=== PATIENT | male | born 2000 | race Caucasian/White ===

== ENCOUNTER 2021-08-08 07:37 | Inpatient (IN) | payer OTHER ==
[2021-08-08] MEDS ORDERED: Fentanyl 100 MCG/2 ML VIAL ONE (07:41)
[2021-08-08] MEDS ORDERED: Boostrix 0.5 ML (Tdap) VIAL ONE (07:41)
[2021-08-08] MEDS ORDERED: CEFAZOLIN 1 GM VIAL ONE (07:41)
[2021-08-08] MEDS ORDERED: Succinylcholine 200 MG/10 ml SYRINGE FS ONE (07:43)
[2021-08-08 08:05] LABS: Hemoglobin 16.7 g/dL (14.0-18.0); Mean Corpuscular HGB CONC 34.2 g/dL (32.0-36.0); Mean Corpuscular Hemoglobin 30.1 pg (27.0-31.0); Mean Corpuscular Volume 88.1 fL (78.0-98.0); Mean Platelet Volume 8.6 fL (7.4-10.4); Platelet Count 255 thou/uL (130-400); RBC Distribution Width 11.9 % (11.5-14.5); Red Blood Cell (RBC) Count 5.55 mill/uL (4.70-6.10); White Blood Cell (WBC) Count 21.7 thou/uL (4.8-10.8)
[2021-08-08 08:20] LABS: INR-International Normal Ratio 1.3; Prothrombin Time 16.7 sec (12.0-14.7)
[2021-08-08] MEDS ORDERED: Ondansetron ODT 4 MG TAB PO PRN (08:20)
[2021-08-08] MEDS ORDERED: Ondansetron PF 4 MG/2 ML Vial IVP PRN (08:20)
[2021-08-08] MEDS ORDERED: Dextrose 50% Abboject 50 ML SYRINGE SLOW IVP PRN (08:20)
[2021-08-08] MEDS ORDERED: Dextrose 5% in Water 1,000 ML IV PRN (08:20)
[2021-08-08 08:21] LABS: PTT 28.8 sec (22.9-36.1)
[2021-08-08 08:28] LABS: ALT (SGPT) 37 U/L (8-55); AST (SGOT) 52 U/L (5-34); Albumin 4.1 g/dL (3.5-5.0); Alcohol 196 mg/dL (Less than 10); Alkaline Phosphatase 89 U/L (40-110); Anion Gap 20 mmol/L (10-20); BUN (Urea Nitrogen) 8 mg/dL (8.9-20.6); Bilirubin, Total 0.4 mg/dL (0.2-1.2); Calc. Creatinine Clearance 0 mL/min (70-130); Calcium 7.9 mg/dL (7.8-10.44); Carbon Dioxide 19 mmol/L (22-29); Chloride 112 mmol/L (98-107); Globulin 2.6 g/dL (2.4-3.5); Glucose 157 mg/dL (70-105); Potassium 3.8 mmol/L (3.5-5.1); Protein, Total 6.7 g/dL (6.0-8.3); Sodium 147 mmol/L (136-145)
[2021-08-08 08:30] LABS: Band 10 % (5-11); Eosinophils 1 % (0-10); Lymphocytes 17 % (21-51); MDiff Complete? YES; Monocytes 4 % (0-10); Neutrophil 63 % (42-75); RBC Morphology Normal; Reactive Lymphocytes 5 % (0-10)
[2021-08-08 09:51] LABS: Magnesium 1.9 mg/dL (1.6-2.6)
[2021-08-08 10:11] LABS: Bilirubin Negative (Negative); Blood, Urine Large (Negative); Glucose, Urine (Dipstick) Negative (Negative); Ketone, Urine Negative (Negative); Leukocyte Negative (Negative); Nitrite Negative (Negative); Protein, Urine (Dipstick) Negative (Neg-Trace); Urobilinogen 0.2 mg/dL (Less than 2)
[2021-08-08 10:15] LABS: Clarity Clear (Clear); Specific Gravity, Urine 1.047 (1.002-1.036)
[2021-08-08 10:21] LABS: Amphetamine Not Detected (NotDetected); Barbiturates Screen Not Detected (NotDetected); Benzodiazepine Screen Not Detected (NotDetected); Cocaine Metabolite Screen Not Detected (NotDetected); Methadone Not Detected (NotDetected); Methamphetamine Not Detected (NotDetected); Opiate Screen Not Detected (NotDetected); Oxycodone Screen Not Detected (NotDetected); Phencyclidine (PCP) Not Detected (NotDetected); THC/Cannabinoid Screen Not Detected (NotDetected); Tricyclic Screen Not Detected (NotDetected)
[2021-08-08 10:22] LABS: Bacteria/HPF Rare-Few HPF (None Seen); WBC/HPF 0-3 HPF (0-3)
[2021-08-08] MEDS ORDERED: Iopamidol-370 76% 500 ML 1 ML ONE (10:28)
[2021-08-08] MEDS ORDERED: Calcium Chloride 13.6 MEQ in Sodium Chloride 0.9% 100 ML IVPB SCH (11:00)
[2021-08-08] MEDS ORDERED: HYDROmorphone 0.5 MG/0.5 ML SYRINGE SLOW IVP PRN (11:13)
[2021-08-08] MEDS ORDERED: HYDROmorphone 0.5 MG/0.5 ML SYRINGE SLOW IVP SCH (11:15)
[2021-08-08] MEDS ORDERED: HYDROmorphone 0.5 MG/0.5 ML SYRINGE ONE (11:20)
[2021-08-08 12:21] LABS: Anion Gap 15 mmol/L (10-20); BUN (Urea Nitrogen) 9 mg/dL (8.9-20.6); Calc. Creatinine Clearance 0 mL/min (70-130); Calcium 8.2 mg/dL (7.8-10.44); Carbon Dioxide 17 mmol/L (22-29); Chloride 116 mmol/L (98-107); Glucose 101 mg/dL (70-105); Potassium 4.3 mmol/L (3.5-5.1); Sodium 144 mmol/L (136-145)
[2021-08-08 12:22] LABS: Lactic Acid 2.6 mmol/L (0.5-2.2); Magnesium 1.8 mg/dL (1.6-2.6); Phosphorus 2.6 mg/dL (2.3-4.7)
[2021-08-08] MEDS ORDERED: Famotidine/PF 20 mg/2ml Vial ONE (12:47)
[2021-08-08 13:17] LABS: SARS-CoV-2 NAA Rapid Test Not Detected (NotDetected)
[2021-08-08] MEDS: Lactated Ringer's 1,000 ML IV SCH ×2 (15:08→18:40)
[2021-08-08] MEDS: Famotidine 20 MG TAB PO SCH ×2 (15:08→20:25)
[2021-08-08] MEDS: Acetaminophen 325 MG TAB PO SCH ×3 (15:32→23:24)
[2021-08-08] MEDS: traMADol HCl 50 MG TAB PO SCH ×3 (15:33→23:23)
[2021-08-08] MEDS: Ibuprofen 200 MG TAB PO SCH ×2 (15:40→20:25)
[2021-08-08] MEDS: Ascorbic Acid 500 mg Chewable Tablet PO SCH (20:25)
[2021-08-08 20:58] LABS: Hemoglobin 14.9 g/dL (14.0-18.0)
[2021-08-09 04:47] LABS: Anion Gap 10 mmol/L (10-20); BUN (Urea Nitrogen) 15 mg/dL (8.9-20.6); Calc. Creatinine Clearance 0 mL/min (70-130); Calcium 8.3 mg/dL (7.8-10.44); Carbon Dioxide 23 mmol/L (22-29); Chloride 108 mmol/L (98-107); Glucose 106 mg/dL (70-105); Phosphorus 2.8 mg/dL (2.3-4.7); Potassium 4.3 mmol/L (3.5-5.1); Sodium 137 mmol/L (136-145)
[2021-08-09 04:57] LABS: Hemoglobin 13.7 g/dL (14.0-18.0); Mean Corpuscular Hemoglobin 30.2 pg (27.0-31.0); Mean Corpuscular Volume 88.8 fL (78.0-98.0); Mean Platelet Volume 8.2 fL (7.4-10.4); Platelet Count 111 thou/uL (130-400); RBC Distribution Width 12.2 % (11.5-14.5); Red Blood Cell (RBC) Count 4.52 mill/uL (4.70-6.10); White Blood Cell (WBC) Count 5.7 thou/uL (4.8-10.8)
[2021-08-09 04:58] LABS: Band 1 % (5-11); Hypochromia SLIGHT = 6-15 cells (100X) (0-5/hpf); Lymphocytes 19 % (21-51); MDiff Complete? YES; Monocytes 9 % (0-10); Neutrophil 68 % (42-75); Platelet Morphology Comment Appears Adequate; Reactive Lymphocytes 3 % (0-10)
[2021-08-09] MEDS: Acetaminophen 325 MG TAB PO SCH ×3 (05:03→17:44)
[2021-08-09] MEDS: Ibuprofen 200 MG TAB PO SCH ×3 (05:04→21:21)
[2021-08-09] MEDS: traMADol HCl 50 MG TAB PO SCH ×3 (05:06→17:45)
[2021-08-09] MEDS: Lactated Ringer's 1,000 ML IV SCH (05:07)
[2021-08-09] MEDS ORDERED: HYDROmorphone 0.5 MG/0.5 ML SYRINGE SLOW IVP PRN (08:57)
[2021-08-09] MEDS: Famotidine 20 MG TAB PO SCH ×2 (09:25→21:20)
[2021-08-09] MEDS: Ascorbic Acid 500 mg Chewable Tablet PO SCH ×2 (09:25→21:19)
[2021-08-09 11:29] LABS: Magnesium 2.1 mg/dL (1.6-2.6)
[2021-08-09] MEDS: Silver Sulfadiazine 50 GM TUBE TOP SCH (21:21)
[2021-08-09] MEDS: Senokot S 8.6-50 MG TAB PO SCH (21:21)
[2021-08-10] MEDS: Acetaminophen 325 MG TAB PO SCH ×5 (00:09→18:53)
[2021-08-10] MEDS: traMADol HCl 50 MG TAB PO SCH ×4 (00:10→18:52)
[2021-08-10 02:53] LABS: #Eosinphils 0.4 thou/uL (0.0-0.7); #Lymphocytes 1.1 thou/uL (1.20-3.40); #Monocytes 0.8 thou/uL (0.11-0.59); #Neutrophils 3.4 thou/uL (1.40-6.50); %Basophils 0.3 % (0.0-1.0); %Eosinophils 7.3 % (0.0-10.0); %Lymphocytes 18.7 % (21.0-51.0); %Monocytes 13.4 % (0.0-10.0); %Neutrophils 60.3 % (42.0-75.0); Hemoglobin 10.5 g/dL (14.0-18.0); Mean Corpuscular HGB CONC 33.9 g/dL (32.0-36.0); Mean Corpuscular Hemoglobin 30.2 pg (27.0-31.0); Mean Platelet Volume 8.5 fL (7.4-10.4); Platelet Count 114 thou/uL (130-400); RBC Distribution Width 12.1 % (11.5-14.5); Red Blood Cell (RBC) Count 3.49 mill/uL (4.70-6.10); White Blood Cell (WBC) Count 5.7 thou/uL (4.8-10.8)
[2021-08-10 03:13] LABS: Anion Gap 10 mmol/L (10-20); BUN (Urea Nitrogen) 14 mg/dL (8.9-20.6); Calc. Creatinine Clearance 153 mL/min (70-130); Calcium 8.4 mg/dL (7.8-10.44); Carbon Dioxide 26 mmol/L (22-29); Chloride 102 mmol/L (98-107); Glucose 108 mg/dL (70-105); Phosphorus 2.7 mg/dL (2.3-4.7); Sodium 134 mmol/L (136-145)
[2021-08-10] MEDS: Ibuprofen 200 MG TAB PO SCH ×3 (05:27→21:26)
[2021-08-10] MEDS: Senokot S 8.6-50 MG TAB PO SCH ×2 (09:25→21:27)
[2021-08-10] MEDS: Ascorbic Acid 500 mg Chewable Tablet PO SCH ×2 (09:25→19:48)
[2021-08-10] MEDS: Famotidine 20 MG TAB PO SCH ×2 (09:25→19:48)
[2021-08-10] MEDS: Silver Sulfadiazine 50 GM TUBE TOP SCH ×2 (10:40→21:33)
[2021-08-10] MEDS ORDERED: Sodium Chloride 0.9% 500 ML IV SCH (10:45)
[2021-08-10] MEDS ORDERED: Famotidine/PF 20 mg/2ml Vial ONE (14:13)
[2021-08-10] MEDS ORDERED: ceFAZolin 2 GM/Dextrose 50 ML IVPB ONE (14:24)
[2021-08-10] MEDS ORDERED: Midazolam HCl 2 mg/2 ml Vial ONE (14:31)
[2021-08-10] MEDS ORDERED: Fentanyl 100 MCG/2 ML VIAL ONE ×5 (14:35→17:57)
[2021-08-10] MEDS ORDERED: SUGAMMADEX SODIUM 200 MG/2 ML VIAL ONE (14:35)
[2021-08-10] MEDS ORDERED: Metoclopramide HCl 10 MG/2 ML VIAL ONE (14:40)
[2021-08-10] MEDS ORDERED: Rocuronium Bromide 10 MG/ML (10ML VIAL) ONE (14:40)
[2021-08-10] MEDS ORDERED: Dexamethasone 20 MG/5 ML VIAL ONE (14:40)
[2021-08-10] MEDS ORDERED: PROPOFOL 200 MG/20 ML VIAL ONE (14:40)
[2021-08-10] MEDS ORDERED: Lidocaine 1% PF 5 ML VIAL ONE (14:40)
[2021-08-10] MEDS ORDERED: Ondansetron PF 4 MG/2 ML Vial ONE (14:40)
[2021-08-10] MEDS ORDERED: PHENYLEPHRINE-NS 100 MCG/ML 10 ML SYRINGE ONE (14:40)
[2021-08-10] MEDS ORDERED: Promethazine HCl 25 MG/ML VIAL IVPB PRN (16:23)
[2021-08-10] MEDS ORDERED: Promethazine HCl 25 MG/ML VIAL IM PRN (16:23)
[2021-08-10] MEDS ORDERED: Ondansetron HCl/PF 4 MG/2 ML Vial IVP PRN (16:23)
[2021-08-10] MEDS ORDERED: HYDROmorphone 2 MG/ML VIAL SLOW IVP PRN (16:23)
[2021-08-10] MEDS ORDERED: Meperidine HCl/PF 25 MG/ML VIAL SLOW IVP PRN (16:23)
[2021-08-10] MEDS ORDERED: HYDROmorphone 0.5 MG/0.5 ML SYRINGE ONE ×2 (16:57→17:10)
[2021-08-10 17:49] LABS: Hemoglobin 9.2 g/dL (14.0-18.0)
[2021-08-10] MEDS: Sodium Chloride 0.9% 1,000 ML IV SCH ×3 (18:05→21:46)
[2021-08-10] MEDS: traMADol HCl 50 MG TAB PO PRN (19:48)
[2021-08-10] MEDS ORDERED: ceFAZolin Sodium/D5W 2 GM in Premix Bag 1 BAG IVPB SCH (22:00)
[2021-08-10] MEDS: ceFAZolin 2 GM/Dextrose 50 ML 2 GM in Premix Bag 1 BAG IVPB SCH (22:28)
[2021-08-11] MEDS: traMADol HCl 50 MG TAB PO SCH ×5 (01:02→23:47)
[2021-08-11] MEDS: Acetaminophen 325 MG TAB PO SCH ×2 (01:08→04:56)
[2021-08-11] MEDS: Ibuprofen 200 MG TAB PO SCH (04:57)
[2021-08-11] MEDS: ceFAZolin 2 GM/Dextrose 50 ML 2 GM in Premix Bag 1 BAG IVPB SCH ×2 (05:19→14:30)
[2021-08-11 06:33] LABS: #Lymphocytes 0.4 thou/uL (1.20-3.40); #Monocytes 0.4 thou/uL (0.11-0.59); #Neutrophils 4.5 thou/uL (1.40-6.50); %Eosinophils 0.2 % (0.0-10.0); %Lymphocytes 7.5 % (21.0-51.0); %Monocytes 8.1 % (0.0-10.0); %Neutrophils 84.2 % (42.0-75.0); Hemoglobin 7.9 g/dL (14.0-18.0); Mean Corpuscular HGB CONC 35.6 g/dL (32.0-36.0); Mean Corpuscular Hemoglobin 31.5 pg (27.0-31.0); Mean Corpuscular Volume 88.6 fL (78.0-98.0); Mean Platelet Volume 8.4 fL (7.4-10.4); Platelet Count 106 thou/uL (130-400); RBC Distribution Width 11.7 % (11.5-14.5); Red Blood Cell (RBC) Count 2.51 mill/uL (4.70-6.10); White Blood Cell (WBC) Count 5.3 thou/uL (4.8-10.8)
[2021-08-11] MEDS: Famotidine 20 MG TAB PO SCH ×2 (08:55→20:31)
[2021-08-11] MEDS: Ascorbic Acid 500 mg Chewable Tablet PO SCH ×2 (08:55→20:31)
[2021-08-11] MEDS: Senokot S 8.6-50 MG TAB PO SCH ×2 (08:55→20:31)
[2021-08-11] MEDS: traMADol HCl 50 MG TAB PO PRN (09:02)
[2021-08-11] MEDS: Sodium Chloride 0.9% 1,000 ML IV SCH (09:03)
[2021-08-11] MEDS: Silver Sulfadiazine 50 GM TUBE TOP SCH ×3 (09:03→20:33)
[2021-08-11] MEDS: Acetaminophen 500 MG TAB PO SCH ×3 (11:43→23:46)
[2021-08-11 12:05] LABS: #Lymphocytes 0.5 thou/uL (1.20-3.40); #Monocytes 0.6 thou/uL (0.11-0.59); #Neutrophils 5.5 thou/uL (1.40-6.50); %Eosinophils 0.2 % (0.0-10.0); %Lymphocytes 7.8 % (21.0-51.0); %Monocytes 8.4 % (0.0-10.0); %Neutrophils 83.6 % (42.0-75.0); Hemoglobin 7.8 g/dL (14.0-18.0); Mean Corpuscular HGB CONC 35.2 g/dL (32.0-36.0); Mean Platelet Volume 8.1 fL (7.4-10.4); Platelet Count 124 thou/uL (130-400); RBC Distribution Width 11.8 % (11.5-14.5); White Blood Cell (WBC) Count 6.6 thou/uL (4.8-10.8)
[2021-08-11] MEDS: Gabapentin 300 MG CAP PO SCH ×2 (14:12→20:31)
[2021-08-11] MEDS: Ibuprofen 200 MG TAB PO PRN (20:32)
[2021-08-12] MEDS: Acetaminophen 500 MG TAB PO SCH (05:41)
[2021-08-12] MEDS: traMADol HCl 50 MG TAB PO SCH ×4 (05:42→23:26)
[2021-08-12 06:13] LABS: #Basophils 0.1 thou/uL (0.0-0.2); #Eosinphils 0.1 thou/uL (0.0-0.7); #Monocytes 0.5 thou/uL (0.11-0.59); #Neutrophils 2.5 thou/uL (1.40-6.50); %Basophils 1.6 % (0.0-1.0); %Eosinophils 1.3 % (0.0-10.0); %Lymphocytes 24.9 % (21.0-51.0); %Monocytes 11.5 % (0.0-10.0); %Neutrophils 60.7 % (42.0-75.0); Hemoglobin 7.4 g/dL (14.0-18.0); Mean Corpuscular HGB CONC 34.2 g/dL (32.0-36.0); Mean Corpuscular Hemoglobin 30.7 pg (27.0-31.0); Mean Corpuscular Volume 89.6 fL (78.0-98.0); Mean Platelet Volume 7.6 fL (7.4-10.4); Platelet Count 123 thou/uL (130-400); RBC Distribution Width 12.1 % (11.5-14.5); Red Blood Cell (RBC) Count 2.42 mill/uL (4.70-6.10); White Blood Cell (WBC) Count 4.2 thou/uL (4.8-10.8)
[2021-08-12 06:26] LABS: Anion Gap 11 mmol/L (10-20); BUN (Urea Nitrogen) 10 mg/dL (8.9-20.6); Calc. Creatinine Clearance 175 mL/min (70-130); Calcium 8.1 mg/dL (7.8-10.44); Carbon Dioxide 26 mmol/L (22-29); Chloride 106 mmol/L (98-107); Glucose 93 mg/dL (70-105); Phosphorus 2.1 mg/dL (2.3-4.7); Potassium 3.6 mmol/L (3.5-5.1); Sodium 139 mmol/L (136-145)
[2021-08-12] MEDS ORDERED: Acetaminophen/Codeine 30-300mg Tablet PO PRN ×3 (08:22→08:38)
[2021-08-12] MEDS ORDERED: Potassium Phosphate 30 MMOL in Sodium Chloride 0.9% 250 ML 250 ML IVPB SCH (08:45)
[2021-08-12] MEDS ORDERED: Pregabalin 75 MG CAP PO SCH (10:15)
[2021-08-12] MEDS: Ascorbic Acid 500 mg Chewable Tablet PO SCH ×2 (10:39→20:42)
[2021-08-12] MEDS: Polyethylene Glycol 3350 17 GM Packet PO SCH (10:39)
[2021-08-12] MEDS: Famotidine 20 MG TAB PO SCH ×2 (10:39→20:39)
[2021-08-12] MEDS: Acetaminophen/Codeine 30-300mg Tablet PO PRN ×3 (10:40→20:40)
[2021-08-12] MEDS: Senokot S 8.6-50 MG TAB PO SCH ×2 (10:40→20:39)
[2021-08-12] MEDS: Ibuprofen 200 MG TAB PO PRN ×2 (10:41→20:39)
[2021-08-12] MEDS: Acetaminophen 325 MG TAB PO SCH ×3 (10:42→23:25)
[2021-08-12] MEDS: Silver Sulfadiazine 50 GM TUBE TOP SCH ×2 (11:12→20:43)
[2021-08-12] MEDS: Gabapentin 300 MG CAP PO SCH (11:19)
[2021-08-12] MEDS ORDERED: Acetaminophen 325 MG TAB PO SCH (12:00)
[2021-08-12] MEDS: Pregabalin 75 MG CAP PO SCH (20:39)
[2021-08-13] MEDS: Acetaminophen 325 MG TAB PO SCH (05:36)
[2021-08-13] MEDS: traMADol HCl 50 MG TAB PO SCH ×4 (05:36→23:34)
[2021-08-13 06:46] LABS: #Eosinphils 0.3 thou/uL (0.0-0.7); #Lymphocytes 0.9 thou/uL (1.20-3.40); #Monocytes 0.7 thou/uL (0.11-0.59); #Neutrophils 4.8 thou/uL (1.40-6.50); %Eosinophils 3.9 % (0.0-10.0); %Lymphocytes 13.8 % (21.0-51.0); %Monocytes 10.2 % (0.0-10.0); %Neutrophils 72.2 % (42.0-75.0); Hemoglobin 9.8 g/dL (14.0-18.0); Mean Corpuscular HGB CONC 35.7 g/dL (32.0-36.0); Mean Corpuscular Hemoglobin 31.6 pg (27.0-31.0); Mean Corpuscular Volume 88.4 fL (78.0-98.0); Mean Platelet Volume 7.5 fL (7.4-10.4); Platelet Count 134 thou/uL (130-400); RBC Distribution Width 12.9 % (11.5-14.5); Red Blood Cell (RBC) Count 3.11 mill/uL (4.70-6.10); White Blood Cell (WBC) Count 6.7 thou/uL (4.8-10.8)
[2021-08-13] MEDS: Ibuprofen 200 MG TAB PO PRN ×2 (06:49→18:40)
[2021-08-13] MEDS: Acetaminophen/Codeine 30-300mg Tablet PO PRN (06:49)
[2021-08-13 07:37] LABS: Anion Gap 11 mmol/L (10-20); BUN (Urea Nitrogen) 9 mg/dL (8.9-20.6); Calc. Creatinine Clearance 178 mL/min (70-130); Calcium 8.8 mg/dL (7.8-10.44); Carbon Dioxide 28 mmol/L (22-29); Chloride 101 mmol/L (98-107); Glucose 99 mg/dL (70-105); Magnesium 1.7 mg/dL (1.6-2.6); Phosphorus 3.3 mg/dL (2.3-4.7); Potassium 3.8 mmol/L (3.5-5.1); Sodium 136 mmol/L (136-145)
[2021-08-13] MEDS: Senokot S 8.6-50 MG TAB PO SCH ×2 (09:40→20:49)
[2021-08-13] MEDS: Famotidine 20 MG TAB PO SCH ×2 (09:40→20:49)
[2021-08-13] MEDS: Enoxaparin Sodium 40 MG/0.4 ML SYRINGE SC SCH (09:40)
[2021-08-13] MEDS: Polyethylene Glycol 3350 17 GM Packet PO SCH (09:40)
[2021-08-13] MEDS: Ascorbic Acid 500 mg Chewable Tablet PO SCH ×2 (09:40→20:49)
[2021-08-13] MEDS: Pregabalin 75 MG CAP PO SCH ×2 (09:41→20:50)
[2021-08-13] MEDS ORDERED: cloNIDine 0.1 MG TAB PO SCH (09:45)
[2021-08-13] MEDS: Acetaminophen/Codeine 30-300mg Tablet PO SCH ×3 (10:28→22:27)
[2021-08-13] MEDS: cloNIDine 0.2 MG TAB PO SCH ×2 (12:25→18:38)
[2021-08-13] MEDS: Silver Sulfadiazine 50 GM TUBE TOP SCH ×2 (12:28→20:51)
[2021-08-14] MEDS: cloNIDine 0.2 MG TAB PO SCH ×5 (00:56→23:54)
[2021-08-14] MEDS: Acetaminophen/Codeine 30-300mg Tablet PO SCH ×5 (03:56→20:33)
[2021-08-14] MEDS: traMADol HCl 50 MG TAB PO SCH ×4 (05:00→23:54)
[2021-08-14 06:58] LABS: #Eosinphils 0.2 thou/uL (0.0-0.7); #Lymphocytes 0.7 thou/uL (1.20-3.40); %Basophils 0.2 % (0.0-1.0); %Eosinophils 2.4 % (0.0-10.0); %Lymphocytes 9.2 % (21.0-51.0); %Monocytes 12.4 % (0.0-10.0); %Neutrophils 75.8 % (42.0-75.0); Hemoglobin 9.8 g/dL (14.0-18.0); Mean Corpuscular HGB CONC 32.4 g/dL (32.0-36.0); Mean Corpuscular Hemoglobin 28.7 pg (27.0-31.0); Mean Corpuscular Volume 88.6 fL (78.0-98.0); Mean Platelet Volume 7.6 fL (7.4-10.4); Platelet Count 162 thou/uL (130-400); RBC Distribution Width 12.9 % (11.5-14.5); Red Blood Cell (RBC) Count 3.41 mill/uL (4.70-6.10); White Blood Cell (WBC) Count 7.9 thou/uL (4.8-10.8)
[2021-08-14] MEDS: Senokot S 8.6-50 MG TAB PO SCH ×2 (09:20→20:34)
[2021-08-14] MEDS: Enoxaparin Sodium 40 MG/0.4 ML SYRINGE SC SCH (09:21)
[2021-08-14] MEDS: Polyethylene Glycol 3350 17 GM Packet PO SCH (09:21)
[2021-08-14] MEDS: Ascorbic Acid 500 mg Chewable Tablet PO SCH (09:21)
[2021-08-14] MEDS: Pregabalin 75 MG CAP PO SCH ×2 (09:21→20:33)
[2021-08-14] MEDS: Silver Sulfadiazine 50 GM TUBE TOP SCH ×2 (09:26→22:13)
[2021-08-14] MEDS ORDERED: Morphine 4 MG/ML VIAL SLOW IVP PRN (09:43)
[2021-08-14] MEDS: Morphine 4 MG/ML VIAL SLOW IVP PRN ×2 (10:01→15:08)
[2021-08-14] MEDS: Ibuprofen 200 MG TAB PO PRN (13:29)
[2021-08-14] MEDS: Famotidine 20 MG TAB PO SCH (20:33)
[2021-08-14] MEDS: Ibuprofen 200 MG TAB PO SCH (20:34)
[2021-08-15] MEDS: cloNIDine 0.2 MG TAB PO SCH ×4 (05:33→23:44)
[2021-08-15] MEDS: traMADol HCl 50 MG TAB PO SCH ×4 (05:34→23:43)
[2021-08-15] MEDS: Ibuprofen 200 MG TAB PO SCH ×3 (05:35→20:18)
[2021-08-15] MEDS: Acetaminophen/Codeine 30-300mg Tablet PO SCH ×4 (09:43→20:18)
[2021-08-15] MEDS: Famotidine 20 MG TAB PO SCH ×2 (09:44→20:18)
[2021-08-15] MEDS: Ascorbic Acid 500 mg Chewable Tablet PO SCH (09:44)
[2021-08-15] MEDS: Senokot S 8.6-50 MG TAB PO SCH ×2 (09:45→20:17)
[2021-08-15] MEDS: Pregabalin 75 MG CAP PO SCH ×2 (09:45→20:17)
[2021-08-15] MEDS: Polyethylene Glycol 3350 17 GM Packet PO SCH (09:45)
[2021-08-15] MEDS: Enoxaparin Sodium 40 MG/0.4 ML SYRINGE SC SCH (09:45)
[2021-08-15] MEDS: Silver Sulfadiazine 50 GM TUBE TOP SCH ×2 (09:46→22:10)
[2021-08-15] MEDS: Morphine 4 MG/ML VIAL SLOW IVP PRN (14:46)
[2021-08-15 18:30] LABS: SARS-CoV-2 PCR by NAA Not Detected (NotDetected)
[2021-08-16] MEDS: Ibuprofen 200 MG TAB PO SCH ×3 (05:28→22:03)
[2021-08-16] MEDS: traMADol HCl 50 MG TAB PO SCH ×3 (05:29→18:14)
[2021-08-16] MEDS: cloNIDine 0.2 MG TAB PO SCH ×3 (05:29→18:14)
[2021-08-16] MEDS: Polyethylene Glycol 3350 17 GM Packet PO SCH (09:15)
[2021-08-16] MEDS: Enoxaparin Sodium 40 MG/0.4 ML SYRINGE SC SCH (09:15)
[2021-08-16] MEDS: Senokot S 8.6-50 MG TAB PO SCH ×2 (09:16→22:01)
[2021-08-16] MEDS: Acetaminophen/Codeine 30-300mg Tablet PO SCH ×4 (09:16→22:02)
[2021-08-16] MEDS: Ascorbic Acid 500 mg Chewable Tablet PO SCH (09:17)
[2021-08-16] MEDS: Pregabalin 75 MG CAP PO SCH ×2 (09:17→22:04)
[2021-08-16] MEDS: Famotidine 20 MG TAB PO SCH ×2 (09:17→22:01)
[2021-08-16] MEDS: Silver Sulfadiazine 50 GM TUBE TOP SCH ×2 (09:17→22:05)
[2021-08-17] MEDS: cloNIDine 0.2 MG TAB PO SCH ×5 (01:05→23:55)
[2021-08-17] MEDS: traMADol HCl 50 MG TAB PO SCH ×5 (01:05→23:57)
[2021-08-17] MEDS: Ibuprofen 200 MG TAB PO SCH ×3 (06:30→23:58)
[2021-08-17] MEDS: Senokot S 8.6-50 MG TAB PO SCH ×2 (08:28→23:59)
[2021-08-17] MEDS: Pregabalin 75 MG CAP PO SCH ×2 (08:28→23:56)
[2021-08-17] MEDS: Ascorbic Acid 500 mg Chewable Tablet PO SCH (08:28)
[2021-08-17] MEDS: Polyethylene Glycol 3350 17 GM Packet PO SCH (08:28)
[2021-08-17] MEDS: Acetaminophen/Codeine 30-300mg Tablet PO SCH ×4 (08:29→23:57)
[2021-08-17] MEDS: Famotidine 20 MG TAB PO SCH ×2 (08:29→23:55)
[2021-08-17] MEDS: Enoxaparin Sodium 40 MG/0.4 ML SYRINGE SC SCH (08:29)
[2021-08-17] MEDS: Silver Sulfadiazine 50 GM TUBE TOP SCH (08:44)
[2021-08-17] MEDS: Morphine 4 MG/ML VIAL SLOW IVP PRN (14:24)
[2021-08-17] MEDS ORDERED: Morphine 4 MG/ML VIAL SLOW IVP PRN (20:35)
[2021-08-18] MEDS: Silver Sulfadiazine 50 GM TUBE TOP SCH ×3 (00:01→21:05)
[2021-08-18] MEDS: cloNIDine 0.2 MG TAB PO SCH ×3 (05:40→21:04)
[2021-08-18] MEDS: traMADol HCl 50 MG TAB PO SCH ×4 (05:40→23:32)
[2021-08-18] MEDS: Enoxaparin Sodium 40 MG/0.4 ML SYRINGE SC SCH (08:13)
[2021-08-18] MEDS: Polyethylene Glycol 3350 17 GM Packet PO SCH (08:13)
[2021-08-18] MEDS: Senokot S 8.6-50 MG TAB PO SCH ×2 (08:14→21:05)
[2021-08-18] MEDS: Famotidine 20 MG TAB PO SCH ×2 (08:15→21:01)
[2021-08-18] MEDS: Pregabalin 75 MG CAP PO SCH ×2 (08:15→21:01)
[2021-08-18] MEDS: Ascorbic Acid 500 mg Chewable Tablet PO SCH (08:15)
[2021-08-18] MEDS: Acetaminophen/Codeine 30-300mg Tablet PO SCH ×4 (08:15→21:04)
[2021-08-18] MEDS: Ibuprofen 200 MG TAB PO SCH ×2 (14:09→21:03)
[2021-08-19] MEDS: Ibuprofen 200 MG TAB PO SCH ×4 (05:00→21:04)
[2021-08-19] MEDS: traMADol HCl 50 MG TAB PO SCH ×3 (05:36→17:54)
[2021-08-19] MEDS: Polyethylene Glycol 3350 17 GM Packet PO SCH (09:00)
[2021-08-19] MEDS: Silver Sulfadiazine 50 GM TUBE TOP SCH ×2 (09:09→21:13)
[2021-08-19] MEDS: Enoxaparin Sodium 40 MG/0.4 ML SYRINGE SC SCH (09:10)
[2021-08-19] MEDS: Acetaminophen/Codeine 30-300mg Tablet PO SCH ×4 (09:11→21:06)
[2021-08-19] MEDS: Famotidine 20 MG TAB PO SCH ×2 (09:11→21:04)
[2021-08-19] MEDS: Pregabalin 75 MG CAP PO SCH ×2 (09:11→21:06)
[2021-08-19] MEDS: Ascorbic Acid 500 mg Chewable Tablet PO SCH (09:11)
[2021-08-19] MEDS: cloNIDine 0.2 MG TAB PO SCH ×2 (09:12→21:05)
[2021-08-19] MEDS: Senokot S 8.6-50 MG TAB PO SCH ×2 (09:12→21:04)
[2021-08-20] MEDS: traMADol HCl 50 MG TAB PO SCH ×5 (00:05→23:48)
[2021-08-20] MEDS: Ibuprofen 200 MG TAB PO SCH ×3 (05:31→21:05)
[2021-08-20] MEDS: Pregabalin 75 MG CAP PO SCH ×2 (09:01→21:05)
[2021-08-20] MEDS: Senokot S 8.6-50 MG TAB PO SCH ×2 (09:01→21:06)
[2021-08-20] MEDS: Silver Sulfadiazine 50 GM TUBE TOP SCH ×2 (09:01→21:07)
[2021-08-20] MEDS: Ascorbic Acid 500 mg Chewable Tablet PO SCH (09:02)
[2021-08-20] MEDS: Famotidine 20 MG TAB PO SCH ×2 (09:03→21:06)
[2021-08-20] MEDS: Enoxaparin Sodium 40 MG/0.4 ML SYRINGE SC SCH (09:04)
[2021-08-20] MEDS: Acetaminophen/Codeine 30-300mg Tablet PO SCH ×4 (09:04→21:04)
[2021-08-20] MEDS: Polyethylene Glycol 3350 17 GM Packet PO SCH (09:05)
[2021-08-20 09:54] VITALS: BMI 22.9
[2021-08-21] MEDS: traMADol HCl 50 MG TAB PO SCH ×2 (05:46→11:08)
[2021-08-21] MEDS: Ibuprofen 200 MG TAB PO SCH ×2 (05:47→14:37)
[2021-08-21 07:18] LABS: Hemoglobin 12.4 g/dL (14.0-18.0); Platelet Count 380 thou/uL (130-400)
[2021-08-21 07:32] LABS: Calc. Creatinine Clearance 133 mL/min (70-130)
[2021-08-21] MEDS: Ascorbic Acid 500 mg Chewable Tablet PO SCH (09:24)
[2021-08-21] MEDS: Famotidine 20 MG TAB PO SCH (09:25)
[2021-08-21] MEDS: Pregabalin 75 MG CAP PO SCH (09:25)
[2021-08-21] MEDS: Enoxaparin Sodium 40 MG/0.4 ML SYRINGE SC SCH (09:25)
[2021-08-21] MEDS: Acetaminophen/Codeine 30-300mg Tablet PO SCH ×2 (09:25→12:40)
[2021-08-21] MEDS: Senokot S 8.6-50 MG TAB PO SCH (09:25)
[2021-08-21] MEDS: Polyethylene Glycol 3350 17 GM Packet PO SCH (09:33)
[2021-08-21] MEDS: Silver Sulfadiazine 50 GM TUBE TOP SCH (09:33)
[2021-08-21 12:29] VITALS: TEMP 98.2
[2021-08-21 12:30] VITALS: BP 155/89
== END 2021-08-21 16:30 | disposition home or self-care (01) | DRG 958 ==
LOC: ERS 07:37 → ERHOLD 10:48 → CCU 13:10 → SJJU 08-09 11:07
PROVIDERS: ADMIT Specialist; ATTEND Surgery
PROC: 30233N1 Transfusion of Nonautologous Red Blood Cells into Peripheral Vein, Percutaneous Approach (ICD-10-PCS; 2021-08-08)
PROC: 0SH834Z Insertion of Internal Fixation Device into Left Sacroiliac Joint, Percutaneous Approach (ICD-10-PCS; principal; 2021-08-10)
PROC: 0SH734Z Insertion of Internal Fixation Device into Right Sacroiliac Joint, Percutaneous Approach (ICD-10-PCS; 2021-08-10)
DX: S38.1XXA Crushing injury of abdomen, lower back, and pelvis, initial encounter (principal); D62 Acute posthemorrhagic anemia; S37.22XA Contusion of bladder, initial encounter; S32.592A Other specified fracture of left pubis, initial encounter for closed fracture; S32.19XA Other fracture of sacrum, initial encounter for closed fracture; F10.129 Alcohol abuse with intoxication, unspecified; S64.490A Injury of digital nerve of right index finger, initial encounter; S39.011A Strain of muscle, fascia and tendon of abdomen, initial encounter; S33.6XXA Sprain of sacroiliac joint, initial encounter; Z20.822 Contact with and (suspected) exposure to COVID-19; T68.XXXA Hypothermia, initial encounter; R31.29 Other microscopic hematuria; V59.3XXA Occupant (driver) (passenger) of pick-up truck or van injured in unspecified nontraffic accident, initial encounter
CPT/HCPCS: 36415; 36416; 36430; 51600; 51702; 70450; 71045; 71260; 72125; 72170; 72190; 74177; 74430; 76000; 76770; 80048; 80053; 80306; 80307; 81003; 81015; 82565; 83605; 83735; 84100; 85014; 85018; 85025; 85049; 85610; 85730; 86850; 86900; 86901; 90471; 90715; 96365; 96375; C1713; C1769; G0390; J0690; J1100; J1170; J1650; J2250; J2270; J2405; J2704; J2765; J3010; J3475; J3490; J7030; J7050; J7120; P9016; Q9967; S0028; U0002; U0003; U0005